=== PATIENT | female | born 1940 | race Caucasian/White ===

== ENCOUNTER 2021-11-17 17:17 | Inpatient (IN) | payer MEDICARE, BC ==
[~2021-11-17] VITALS: Ht 160 cm; Wt 96.1 kg
[2021-11-17 17:20] VITALS: BP 148/82
[2021-11-17] MEDS ORDERED: MULTI-VITAMIN1 EACH PO (19:33)
[2021-11-17] MEDS ORDERED: HALOPERIDOL5 MG/1 ML IV (19:34)
[2021-11-17] MEDS ORDERED: ATIVAN0.5 MG PO (19:35)
[2021-11-17] MEDS ORDERED: LATANOPROST 2.2.5 ML OS (19:36)
[2021-11-17] MEDS ORDERED: LEVOTHYROXINE0.05 MG PO (19:37)
[2021-11-17] MEDS ORDERED: IMODIUM 2MG CAPS2 MG PO (19:38)
[2021-11-17] MEDS ORDERED: MAGNESIUM400 M1 PO (19:39)
[2021-11-17] MEDS ORDERED: DITROPAN 5MG TAB5 MG PO (19:40)
[2021-11-17] MEDS ORDERED: PROAIR HFA0.09 MG/AC PO (19:42)
[2021-11-17] MEDS ORDERED: MILLIPRED5 MG PO (19:43)
[2021-11-17] MEDS ORDERED: BETIMOL 5 ML5 ML OU (19:43)
[2021-11-18 06:34] VITALS: BP 152/79
[2021-11-18 06:47] LABS: BASO # 0.01 K/mm3 (0.02-0.10); EOS # 0.01 K/mm3 (0.04-0.40); EOS % 0.1 % (1.0-5.0); HEMATOCRIT 33.2 % (37.0-47.0); HEMOGLOBIN 11.2 g/dL (12.5-16.0); LYMPH# 1.17 K/mm3 (1.50-4.00); MEAN CELL VOLUME 88 fl (78-100); MEAN CORPUSCULAR HEMOGLOBIN 30 pg (27-31); MEAN CORPUSCULAR HGB CONC 34 g/dL (33-37); MEAN PLATELET VOLUME 10.4 fl (7.4-10.4); MONO # 0.63 K/mm3 (0.20-0.80); NEU # 7.54 K/mm3 (1.40-6.50); PLATELET COUNT 146 K/mm3 (130-400); RED BLOOD COUNT 3.77 M/mm3 (4.10-5.30); RED CELL DISTRIBUTION WIDTH 13.4 % (11.5-14.5); WHITE BLOOD COUNT 9.4 K/mm3 (4.8-10.8)
[2021-11-18 06:56] LABS: ALBUMIN 3.2 g/dL (3.4-4.8); POTASSIUM 3.9 mmol/L (3.5-5.1)
[2021-11-18 06:57] LABS: CALCIUM 8.9 mg/dL (8.3-10.5)
[2021-11-18 06:59] LABS: TOTAL PROTEIN 5.6 g/dL (6.2-8.1)
[2021-11-18 07:00] LABS: TOTAL BILIRUBIN 0.4 mg/dL (0.2-1.2)
[2021-11-18 07:05] LABS: MAGNESIUM 1.58 mg/dL (1.60-2.60)
[2021-11-18 10:32] LABS: URINE APPEARANCE CLEAR; URINE BILIRUBIN NEGATIVE (NEGATIVE); URINE BLOOD 250 ery/uL (NEGATIVE); URINE COLOR YELLOW; URINE GLUCOSE NEGATIVE (NEGATIVE); URINE KETONE NEGATIVE (NEGATIVE); URINE LEUKOCYTE ESTERASE NEGATIVE (NEGATIVE); URINE NITRATE NEGATIVE (NEGATIVE); URINE PROTEIN(semi-quant) TRACE (NEGATIVE); URINE UROBILINOGEN NORMAL (NORMAL)
[2021-11-18 14:24] VITALS: BP 144/77
[2021-11-19 06:43] VITALS: BP 151/90
[2021-11-19 10:34] VITALS: BP 159/80
[2021-11-19 17:10] VITALS: BP 140/84
[2021-11-20 05:50] VITALS: BP 129/79
[2021-11-20 18:09] VITALS: BP 152/65
[2021-11-21 05:47] VITALS: BP 150/76; BP 156/81
[2021-11-21 18:00] VITALS: BP 147/67
[2021-11-22 05:51] VITALS: BP 187/83
[2021-11-22 17:53] VITALS: BP 156/78
[2021-11-23 06:08] VITALS: BP 166/76; BP 168/72
[2021-11-23 06:32] LABS: BASO # 0.05 K/mm3 (0.02-0.10); EOS # 0.48 K/mm3 (0.04-0.40); EOS % 4.8 % (1.0-5.0); HEMATOCRIT 35.3 % (37.0-47.0); HEMOGLOBIN 11.9 g/dL (12.5-16.0); LYMPH# 2.42 K/mm3 (1.50-4.00); MEAN CELL VOLUME 88 fl (78-100); MEAN CORPUSCULAR HEMOGLOBIN 30 pg (27-31); MEAN CORPUSCULAR HGB CONC 34 g/dL (33-37); MEAN PLATELET VOLUME 9.6 fl (7.4-10.4); MONO # 0.86 K/mm3 (0.20-0.80); NEU # 6.09 K/mm3 (1.40-6.50); PLATELET COUNT 180 K/mm3 (130-400); RED BLOOD COUNT 4.02 M/mm3 (4.10-5.30); RED CELL DISTRIBUTION WIDTH 13.1 % (11.5-14.5); WHITE BLOOD COUNT 9.9 K/mm3 (4.8-10.8)
[2021-11-23 06:47] LABS: POTASSIUM 3.7 mmol/L (3.5-5.1)
[2021-11-23 06:48] LABS: CALCIUM 8.3 mg/dL (8.3-10.5)
[2021-11-23 07:54] LABS: URINE APPEARANCE CLEAR; URINE BILIRUBIN NEGATIVE (NEGATIVE); URINE BLOOD NEGATIVE (NEGATIVE); URINE COLOR YELLOW; URINE GLUCOSE NEGATIVE (NEGATIVE); URINE KETONE NEGATIVE (NEGATIVE); URINE LEUKOCYTE ESTERASE NEGATIVE (NEGATIVE); URINE NITRATE NEGATIVE (NEGATIVE); URINE PROTEIN(semi-quant) TRACE (NEGATIVE); URINE UROBILINOGEN NORMAL (NORMAL)
[2021-11-23 10:30] VITALS: BP 143/73
[2021-11-23 18:03] VITALS: BP 152/71
[2021-11-24 05:58] VITALS: BP 151/82
[2021-11-24 17:35] VITALS: BP 152/65
[2021-11-25 06:00] VITALS: BP 149/72
[2021-11-25 17:45] VITALS: BP 130/76
[2021-11-26 06:10] VITALS: BP 155/73
[2021-11-26] MEDS ORDERED: ACETAMINOPHEN325 M1 PO (08:46)
[2021-11-26 10:01] VITALS: BP 112/76
[2021-11-26 10:25] VITALS: BP 112/76
== END 2021-11-26 10:50 | DRG 948 ==
LOC: MED/SURG 17:17
PROVIDERS: ADMIT Physician Assistant
DX: R53.81 Other malaise (principal); N17.9 Acute kidney failure, unspecified; I11.0 Hypertensive heart disease with heart failure; I50.9 Heart failure, unspecified; I27.20 Pulmonary hypertension, unspecified; E89.0 Postprocedural hypothyroidism; F41.9 Anxiety disorder, unspecified; F03.90 Unspecified dementia, unspecified severity, without behavioral disturbance, psychotic disturbance, mood disturbance, and anxiety; K76.0 Fatty (change of) liver, not elsewhere classified; Z79.52 Long term (current) use of systemic steroids; Z90.710 Acquired absence of both cervix and uterus; Z90.49 Acquired absence of other specified parts of digestive tract; Z88.5 Allergy status to narcotic agent; Z86.16 Personal history of COVID-19
CPT/HCPCS: J1630